=== PATIENT | female | born 1955 | race Caucasian/White ===

== ENCOUNTER 2018-01-17 17:41 | Inpatient (IN) ==
[2018-01-17] MEDS ORDERED: Aluminum/Magnesium/Simethacone Susp 30 ML UDC PO PRN (22:39)
[2018-01-17] MEDS ORDERED: LORazepam 1 MG Tablet PO PRN (22:39)
[2018-01-17] MEDS ORDERED: Acetaminophen 325 MG Tablet PO PRN (22:39)
[2018-01-18 08:05] LABS: Baso # (Auto) 0.1 th/mm3 (0.0-0.2); Baso % (Auto) 0.9 % (0.0-2.0); Eos # (Auto) 0.2 th/mm3 (0.0-0.4); Eos % (Auto) 1.9 % (0.0-4.0); Hematocrit 27.4 % (35.0-46.0); Hemoglobin 8.9 gm/dL (11.6-15.3); Lymph # (Auto) 1.5 th/mm3 (1.0-4.8); Lymph % (Auto) 16.3 % (9.0-44.0); Mean Corpuscular HGB Conc 32.5 % (32.0-36.0); Mean Corpuscular Hemoglobin 25.2 pg (27.0-34.0); Mean Corpuscular Volume 77.5 fL (80.0-100.0); Mean Platelet Volume 8.7 fL (7.0-11.0); Mono # (Auto) 0.5 th/mm3 (0.0-0.9); Mono % (Auto) 5.3 % (0.0-8.0); Neut # (Auto) 7.1 th/mm3 (1.8-7.7); Neut % (Auto) 75.6 % (16.0-70.0); Platelet Count 202 th/mm3 (150-450); Red Blood Count 3.54 mil/mm3 (4.00-5.30); Red Cell Distribution Width 15.6 % (11.6-17.2); White Blood Count 9.4 th/mm3 (4.0-11.0)
[2018-01-18 08:24] LABS: Anion Gap 10 meq/L (5-15); Aspartate Aminotransferase 45 U/L (15-37); Blood Urea Nitrogen 19 mg/dL (7-18); Calcium 8.1 mg/dL (8.5-10.1); Carbon Dioxide 22.8 meq/L (21.0-32.0); Chloride 106 meq/L (98-107); Glomerular Filtration Rate 59 mL/min (>89); Glucose,Random 287 mg/dL (74-106); Potassium 3.8 meq/L (3.5-5.1); Sodium 139 meq/L (136-145)
[2018-01-18 08:26] LABS: Alanine Aminotransferase 30 U/L (10-53); Cholesterol 155 mg/dL (120-200); Triglycerides 131 mg/dL (42-150)
[2018-01-18 08:35] LABS: Alkaline Phosphatase 62 U/L (45-117); Chol/HDL Ratio 3.55 Ratio; HDL Cholesterol 43.6 mg/dL (40.0-60.0); LDL Cholesterol,Calculated 85 mg/dL (0-99); Total Protein 6.6 g/dL (6.4-8.2)
[2018-01-18] MEDS ORDERED: Sertraline 50 MG Tablet PO ONE (10:31)
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
[2018-01-18] MEDS ORDERED: Dextrose 50% in Water 50 ML Vial IV.PUSH PRN (15:49)
--- NOTE | 2018-01-18 16:08 | P.CONIM ---
History of Present Illness Service: [facility] Consult date: 01/18/18 Requesting Physician: Grzegorz Monzon Reason for Consult: Assist with medical management Primary Care Provider: UNKNOWN Chief Complaint: Sweaty, dizziness, dry mouth History of Present Illness: Patient is a 62-year-old female with past medical history of hypertension, diabetes who initially came to [facility] for suicide attempt. Per review of records patient took 20 Tylenol PM and a bottle of Unisom with the intent of killing herself. She is now admitted to psychiatry unit for further evaluation. Consulted for assistance with medical management. Review of records from hospitalization in [facility], patient was treated with acetylcysteine, famotidine, discharged with Keflex secondary to bacterial infection. She is found to have acute kidney injury, and was treated with IV fluids. Her diabetic medications were held and was placed on insulin sliding scale. Patient was not started on insulin on transfer. Patient seen and examined today. Lying in bed. Reports that she was dizzy and unsteady on her feet. Complains of dry mouth. Complains of being sweaty. States that she was really concerned and worried that they have not been giving her insulin or any oral hypoglycemics for her diabetes because it might do harm on her. Patient denies suicidal ideation. Noted having cuts on her wrists. Denies pain and discomfort. Denies SOB/ dyspnea. Denies chest pain, palpitations. Denies fevers, chills, n/v/d. Denies dysuria. Review of Systems All other systems reviewed negative except as stated in HPI [facility] - History History Provided By: Patient, Medical Record - Medical History Medical History: Medical History (Last Updated 01/18/18 @ 17:28 by DAMIAN Blanco) DM type 2 (diabetes mellitus, type 2) HTN (hypertension) History of hysterectomy - Surgical History Surgical History: Surgical History (Last Updated 01/18/18 @ 17:28 by DAMIAN Blanco) Status post laser ablation of incompetent vein - Family History Family History: Family History (Last Updated 01/18/18 @ 17:28 by DAMIAN Blanco) Other Parents - Social History I have reviewed the patient's Social History: Yes - Tobacco History Second Hand Smoke Exposure: No Tobacco Use In Past 30 Days: No Smoking Status: Never smoker - Alcohol History How Often Do You Have a Drink Containing Alcohol: Never - Substance Use History Substance History: No History of Abuse - Substance Use Type Other Comment: Patient denies any past/present substance abuse. - Travel History Recent Travel in the [place] Within the Last 8 Weeks: No Recent Travel Out of the Country Within the Last 8 Weeks: No - Immunization History Tetanus Immunization: <5 Years Tetanus Immunization Year if Known: 2017 Hx Influenza Vaccine This Season: Yes Medications and Allergies Active Medications: Active Medications Acetaminophen (Tylenol) 650 mg PO Q4H PRN PRN Reason: Pain 1-5 or Temp >101F Al Hydrox/Mg Hydrox/Simethicone (Mag-Al Plus Susp Liq) 30 ml PO Q6H PRN PRN Reason: DYSPEPSIA Al Hydroxide/Mg Hydroxide (Milk Of Magnesia Liq) 30 ml PO Q12H PRN PRN Reason: Mild Constipation Albuterol (Duoneb Neb (Prn)) 1 ampul NEB Q4HR NEB PRN PRN Reason: SOB/ Wheezing Cephalexin Monohydrate (Keflex) 500 mg PO Q12HR [facility] Stop: 01/25/18 20:59 Dextrose (D50w Vial) 50 ml IV.PUSH UNSCH PRN PRN Reason: PER HYPOGLYCEMIA PROTOCOL Diphenhydramine HCl (Benadryl) 50 mg PO HS PRN PRN Reason: INSOMNIA Diphenhydramine HCl (Benadryl Inj) 50 mg IM HS PRN PRN Reason: INSOMNIA Glipizide (Glucotrol) 5 mg PO BID@0800,1700 [facility] Glucagon (Glucagon Inj) 1 mg OTHER PRN PRN PRN Reason: for Hypoglycemia Protocol Insulin Aspart (Novolog Insulin Correctional Sugar Inj) 0 unit SQ ACHS [facility]; Protocol Lisinopril (Prinivil) 10 mg PO DAILY [facility] Lorazepam (Ativan Inj) 1 mg IM Q6H PRN PRN Reason: MODERATE TO SEVERE ANXIETY Lorazepam (Ativan) 1 mg PO Q6H PRN PRN Reason: MODERATE TO SEVERE ANXIETY Metformin HCl (Glucophage) 1,000 mg PO BIDPC [facility] Miscellaneous (Pill Splitter) 1 each OTHER UNSCH [facility] Last Admin: 01/18/18 11:11 Dose: 1 each Nicotine (Habitrol 21 Mg Patch.24 Hr) 1 patch T-DERMAL DAILY [facility] Last Admin: 01/18/18 08:35 Dose: Not Given Patch Removal (Remove Old Patch) 1 each T-DERMAL HS [facility] Sertraline HCl (Zoloft) 50 mg PO DAILY [facility] Allergies Allergy/AdvReac Type Severity Reaction Status Date / Time erythromycin base Allergy Severe "swelled Verified 01/17/18 22:13 up" Exam Vital signs: Vital Signs 01/17/18 22:08 01/18/18 05:59 Temperature 98.3 F 98.3 F Pulse Rate 87 83 Respiratory Rate 18 16 Blood Pressure 155/71 H 127/85 Pulse Oximetry 100 95 Intake & Output 01/17/18 01/18/18 01/18/18 18:59 06:59 18:59 Weight 164.1 kg Other: Weight On Admission 164.1 kg Narrative: GENERAL: This is a morbidly obese female patient, in no apparent distress. SKIN: Warm and dry. Pale. Bilateral lower extremity discoloration. HEENT: Normocephalic. Pupils equal round and reactive. Nose without bleeding. Airway patent. NECK: Trachea midline. CARDIOVASCULAR: Regular rate and rhythm without murmurs, gallops, or rubs. RESPIRATORY: Clear to auscultation. Breath sounds equal bilaterally. No wheezes , rales, or rhonchi. GASTROINTESTINAL: Abdomen soft, non-tender, nondistended. Bowel Sounds normoactive x4. MUSCULOSKELETAL: Extremities without clubbing, cyanosis, or edema. NEUROLOGICAL: Awake and alert. Oriented to time, place, person. No focal neuro deficit. Moves all extremities. Normal speech. Results - Labs CBC & Chem 7: 01/18/18 07:39 01/18/18 07:39 Labs: Laboratory Results - last 24 hr 01/18/18 01/18/18 01/18/18 07:39 07:39 07:39 WBC 9.4 RBC 3.54 L Hgb 8.9 L Hct 27.4 L MCV 77.5 L MCH 25.2 L MCHC 32.5 RDW 15.6 Plt Count 202 MPV 8.7 Neut % (Auto) 75.6 H Lymph % (Auto) 16.3 [place] % (Auto) 5.3 Eos % (Auto) 1.9 Baso % (Auto) 0.9 Neut # (Auto) 7.1 Lymph # (Auto) 1.5 [place] # (Auto) 0.5 Eos # (Auto) 0.2 Baso # (Auto) 0.1 WBC Differential . Differential Comment Auto diff final Sodium 139 Potassium 3.8 Chloride 106 Carbon Dioxide 22.8 Anion Gap 10 BUN 19 H Creatinine 0.97 Estimated GFR 59 L Random Glucose 287 H Calcium 8.1 L Total Bilirubin 0.4 AST 45 H ALT 30 Alkaline Phosphatase 62 Total Protein 6.6 Albumin 3.0 L Triglycerides 131 Cholesterol 155 LDL Cholesterol, Calc 85 HDL Cholesterol 43.6 Cholesterol/HDL Ratio 3.55 TSH 4.150 H Free T4 1.26 Assessment and Plan - Plan Patient is a 62-year-old female with past medical history of hypertension, diabetes who initially came to [facility] for suicide attempt. Per review of records patient took 20 Tylenol PM and a bottle of Unisom with the intent of killing herself. She is now admitted to psychiatry unit for further evaluation. Consulted for assistance with medical management. Suicidal ideation Depression -Managed by psychiatry team DM 2, uncontrolled -Acute kidney injury has resolved, will restart home medication metformin 1000 mg twice daily, glipizide 5 mg twice daily -As per patient she is not taking any Januvia because of the cost of the medication. -Check hemoglobin A1c. Continue insulin sliding scale. -Monitor for hypoglycemia. -Patient possibly have dry mouth, dizziness, sweating and unsteady gait because her insulin and other home medications were not restarted. Patient's blood glucose is greater than 200 this a.m. HTN -Restart lisinopril 10 mg daily -Monitor BP trend Bacterial infection, from previous hospitalization -Continue Keflex 500 mg as ordered twice daily DVT prop, early ambulation Code Status: Full Code Discussed Condition With: Discussed condition patient, nursing Discharge Planning: DC disposition by primary team
[2018-01-18] MEDS: Lisinopril 10 MG Tablet PO SCH (16:51)
[2018-01-18] MEDS: glipiZIDE 5 MG Tablet PO SCH (16:51)
[2018-01-18] MEDS: Insulin NovoLOG Aspart Correctional Sugar Inj SQ SCH ×2 (16:52→20:51)
[2018-01-18 17:47] LABS: % Iron Saturation 11.6 % (20-50)
[2018-01-18 21:33] LABS: Hemoglobin A1c 11.5 % (4.3-6.0)
[2018-01-19] MEDS: Lisinopril 10 MG Tablet PO SCH (08:46)
[2018-01-19] MEDS: Sertraline 50 MG Tablet PO SCH (08:46)
[2018-01-19] MEDS: glipiZIDE 5 MG Tablet PO SCH ×2 (08:46→17:07)
[2018-01-19] MEDS: Insulin NovoLOG Aspart Correctional Sugar Inj SQ SCH ×4 (08:46→20:24)
--- NOTE | 2018-01-19 12:10 | P.PNPSY ---
<Paula Brush - Last Filed: 01/19/18 11:58> Subjective Remarks: Patient was seen, chart reviewed. Patient was found in her room sitting up in bed with her eyes closed during most of the interview. She reports poor sleep since her roommate left the light on most of the night. She states that she is doing better but is stressed out about her blood sugars which have been ranging from 200-300. She is also concerned that she is not drinking enough water. Patient reports appetite is fair and that she still needs her walker to get around. Patient smiled at inappropriate times during the interview and only opened her eyes at the end. Her sister visited yesterday and patient is "cautiously hopeful" about being able to stay with her sister when she is discharged. Review of Systems All other systems reviewed negative except as stated in HPI Constitutional: Reports daytime sleepiness Psychiatric: Reports hopelessness Mental Status Examination Appearance: Appropriate Consciousness: Lethargic Orientation: x4 Speech: Unremarkable, Slow Language: Adequate Fund of Knowledge: Inadequate Attention and Concentration: Adequate Memory: Unremarkable Mood: Good Affect: Appropriate Thought Process & Associations: Intact, Goal directed, Linear Thought Content: Appropriate Hallucination Type: None Delusion Type: None Suicidal Ideation: Yes (denies at this time but is unrelieable to contract for safety) Suicidal Plan: No Suicidal Intention: No Homicidal Ideation: No Homicidal Plan: No Homicidal Intention: No Insight: Fair Judgment: Impulsive Assessment and Plan - Assessment (1) Major depressive disorder Code(s): F32.9 - Major depressive disorder, single episode, unspecified Status : Acute - Plan Plan: Estimated LOS: [] days Patient is a 62-year-old woman with no formal past psychiatric history , who was brought in under [facility] act. As a transfer from a local hospital due to suicide attempt via overdose as well as having behavior in a suicide attempt. Patient at this time requires inpatient psychiatric stabilization for safety. Patient has capacity to consent for treatment and agrees to voluntary admission at this time. We will start patient on sertraline 25 mg p.o. x 1, 50 mg p.o. daily thereafter for depression. We will continue to monitor mood and behavior. Hospitalist input appreciated. Social work intervention for psychosocial assessment. Collateral information pending. Discharge planning in progress. Justification for Continued Inpatient Stay: Patient needs to be stabilized. Discharge Planning: Patient is having discussions with her sister about staying with her when she leaves as she is unable to afford her rent due on January 20. <NicolásRodrigueGrzegorz Stevo - Last Filed: 01/19/18 16:37> Subjective Remarks: Patient seen for follow up; chart reviewed. Discussion with nursing staff reported that patient reported that shortness of breath is improving and is ambulatory with walker still, denying suicide ideations today. Patient was found lying hospital bed noted B, cooperative. Patient states she was able to ambulate to the room for breakfast stating that her breathing is improved, states that she is moving better now. Patient reports her mood is being "okay" feeling tired but had disturbed sleep due to her roommate last evening. Patient continues report feeling depressed but denying any suicide ideations today although noted to have some vagueness to her answer. Patient states of his sister visited and unclear whether she is able to move in with her for support upon discharge. She states that she is trying to go to some groups denying any adverse drug reactions from treatment thus far. Review of Systems All other systems reviewed negative except as stated in HPI Mental Status Examination Appearance: Appropriate Consciousness: Alert, Somnolent (Slightly) Orientation: x4 Motor Activity: Other (Using a walker to ambulate) Speech: Unremarkable, Slow Language: Adequate Fund of Knowledge: Inadequate Attention and Concentration: Adequate Memory: Unremarkable Mood: Other ("ok") Affect: Sad Thought Process & Associations: Intact, Goal directed, Linear Thought Content: Appropriate Hallucination Type: None Delusion Type: None Suicidal Ideation: Yes Suicidal Plan: No Suicidal Intention: No Homicidal Ideation: No Homicidal Plan: No Homicidal Intention: No Insight: Fair Judgment: Impulsive Assessment and Plan - Assessment (1) Major depressive disorder Code(s): F32.9 - Major depressive disorder, single episode, unspecified Status : Acute - Plan Plan: Estimated LOS: [] days Patient this time continues with depressed mood, vague suicidal ideation still and unreliable to contract for safety. We will continue current treatment. We will continue to monitor mood and behavior. Sertraline is increased to 50 mg p.o. daily. Discharge planning in progress. <Grzegorz Monzon G - Last Filed: 01/19/18 16:37> (1) Major depressive disorder Qualifiers: Major depression recurrence: single episode Active/Remission status: currently active Major depression episode severity: severe Psychotic features : without psychotic features Qualified Code(s): F32.2 - Major depressive disorder, single episode, severe without psychotic features
--- NOTE | 2018-01-19 14:29 | P.PNIM ---
Subjective Interval history: Follow-up visit uncontrolled diabetes type 2, morbid obesity, generalized weakness, urinary tract infection. Patient seen and examined today. States that she has generalized weakness. States occasionally gets dizzy when she gets up. Discussed with patient results of hemoglobin A1c which is 11.5. States that she has unit educator visit today. Discussed starting insulin regimen. Verbalized understanding. Denies pain and discomfort. Denies SOB/ dyspnea. Denies chest pain, palpitations. Denies fevers, chills, n/v/d. Denies dysuria. Physical Exam Vital signs: Vital Signs 01/18/18 17:26 01/18/18 20:33 01/19/18 05:13 Temperature 98.6 F 98.0 F Pulse Rate 79 79 77 Respiratory Rate 16 18 Blood Pressure 129/77 139/69 Pulse Oximetry 92 L 87 L Intake & Output 01/18/18 01/19/18 01/19/18 18:59 06:59 18:59 Intake Total 240 / 240 Balance 240 / 240 Intake: Oral 240 / 240 Narrative: GENERAL: This is a morbidly obese female patient, in no apparent distress. SKIN: Warm and dry. Pale. Bilateral lower extremity discoloration. Bilateral wrists and Antecubital area lacerations. HEENT: Normocephalic. Pupils equal round and reactive. Nose without bleeding. Airway patent. NECK: Trachea midline. CARDIOVASCULAR: Regular rate and rhythm without murmurs, gallops, or rubs. RESPIRATORY: Clear to auscultation. Breath sounds equal bilaterally. No wheezes , rales, or rhonchi. GASTROINTESTINAL: Abdomen soft, non-tender, obese. Bowel Sounds normoactive x4. MUSCULOSKELETAL: Extremities without clubbing, cyanosis, or edema. NEUROLOGICAL: Awake and alert. No focal neuro deficit. Moves all extremities. Normal speech. Results - Labs CBC & Chem 7: 01/18/18 07:39 01/18/18 07:39 Laboratory Results - last 24 hr 01/18/18 01/18/18 01/18/18 07:39 07:39 16:11 POC Glucose 359 H Hemoglobin A1c 11.5 H Iron 34 L TIBC 294 % Saturation 11.6 L Ferritin 140 01/18/18 01/19/18 01/19/18 20:01 06:13 11:23 POC Glucose 283 H 250 H 291 H Hemoglobin A1c Iron TIBC % Saturation Ferritin Assessment and Plan - Plan Patient is a 62-year-old female with past medical history of hypertension, diabetes who initially came to [facility] for suicide attempt. Per review of records patient took 20 Tylenol PM and a bottle of Unisom with the intent of killing herself. She is now admitted to psychiatry unit for further evaluation. Consulted for assistance with medical management. Suicidal ideation Depression -Managed by psychiatry team DM 2, uncontrolled -Acute kidney injury has resolved, will restart home medication metformin 1000 mg twice daily, glipizide 5 mg twice daily -As per patient she is not taking any Januvia because of the cost of the medication. -Continue insulin sliding scale. inclusion paraeducator. -Hemoglobin A1c 11.5. Discussed with patient extensively she will start insulin regimen. -We will start 70/30 10 units twice daily, adjust as necessary. Ideally patient should be on a basal insulin however due to the cost of Levemir/Lantus, will opt for the 7030 regimen. Extensively discussed with patient to take the insulin on her 2 biggest meals of the day. She verbalized understanding. Thankful that she will start with something affordable. -Nursing advice to have the patient start to inject herself for coverage so she could practice with insulin injection. -Monitor for hypoglycemia. HTN -Restart lisinopril 10 mg daily -Monitor BP trend Urinary tract infection Bacterial infection, from previous hospitalization -Continue Keflex 500 mg as ordered twice daily x 7days DVT prop, early ambulation CODE STATUS: Full code Discussed with patient, nursing Discharge Planning: DC disposition by primary team
[2018-01-20] MEDS: Lisinopril 10 MG Tablet PO SCH (08:20)
[2018-01-20] MEDS: Sertraline 50 MG Tablet PO SCH (08:20)
[2018-01-20] MEDS: glipiZIDE 5 MG Tablet PO SCH ×2 (08:22→17:44)
[2018-01-20] MEDS: Insulin NovoLOG Aspart Correctional Sugar Inj SQ SCH ×4 (08:22→20:59)
--- NOTE | 2018-01-20 16:15 | P.PN ---
Subjective Interval history: Follow-up visit uncontrolled diabetes type 2, morbid obesity, generalized weakness, urinary tract infection. Patient seen and examined today. Awakes to voice, c/o feeling fatigued, doesn't have energy to walk around. Mildly sob with activity. No cp. Dizziness occasionally. No fever. BGM 240s, lowest 172. Noted pale, denies blood in stool, no heartburn. No problems with appetite. Physical Exam Vital signs: Vital Signs 01/19/18 17:17 01/20/18 04:53 Temperature 98.7 F 97.9 F Pulse Rate 78 71 Respiratory Rate 18 16 Blood Pressure 148/77 H 133/70 Pulse Oximetry 93 L 91 L Narrative: GENERAL: This is a morbidly obese female patient, in no apparent distress. SKIN: Warm and dry. Pale. Bilateral lower extremity discoloration. Bilateral wrists and Antecubital area lacerations. HEENT: Normocephalic. Pupils equal round and reactive. Nose without bleeding. Airway patent. NECK: Trachea midline. CARDIOVASCULAR: Regular rate and rhythm without murmurs, gallops, or rubs. RESPIRATORY: Clear to auscultation. Breath sounds equal bilaterally. No wheezes , rales, or rhonchi. GASTROINTESTINAL: Abdomen soft, non-tender, obese. Bowel Sounds normoactive x4. MUSCULOSKELETAL: Extremities without clubbing, cyanosis, or edema. NEUROLOGICAL: Awake and alert. No focal neuro deficit. Moves all extremities. Normal speech. Results - Labs CBC & Chem 7: 01/18/18 07:39 01/18/18 07:39 Laboratory Results - last 24 hr 01/19/18 01/19/18 01/20/18 16:29 19:45 05:53 POC Glucose 234 H 252 H 172 H 01/20/18 11:06 POC Glucose 240 H Assessment and Plan - Plan Patient is a 62-year-old female with past medical history of hypertension, diabetes who initially came to [facility] for suicide attempt. Per review of records patient took 20 Tylenol PM and a bottle of Unisom with the intent of killing herself. She is now admitted to psychiatry unit for further evaluation. Consulted for assistance with medical management. Suicidal ideation Depression -Managed by psychiatry team DM 2, uncontrolled -Acute kidney injury has resolved, restarted on home medication metformin 1000 mg twice daily, glipizide 5 mg twice daily -As per patient she is not taking any Januvia because of the cost of the medication. -Continue insulin sliding scale. unit educator. -Hemoglobin A1c 11.5. Discussed with patient extensively she will start insulin regimen. -Started on 70/30 10 units twice daily, adjust as necessary. Ideally patient should be on a basal insulin however due to the cost of Levemir/Lantus, will opt for the 70/30 regimen. Extensively discussed with patient to take the insulin on her 2 biggest meals of the day. She verbalized understanding. Thankful that she will start with something affordable. -Inc. 70/30 to 12 units SQ BID, d/w RN, pt. needs to start practicing self administration of insulin HTN -continue lisinopril 10 mg daily -Monitor BP trend Urinary tract infection Bacterial infection, from previous hospitalization -Continue Keflex 500 mg as ordered twice daily x 7days Anemia, microcytic initial HH 8.9/27.4 C/O feeling fatigued, low energy, some sob with activity Low iron stores noted -Start PO Iron -will repeat CBC in am -check B12 and stool for OB DVT prop, early ambulation/TEDS Code Status: Full code Discussed Condition With: RN, pt. Discharge Planning: per psych team
--- NOTE | 2018-01-20 18:01 | P.PNPSY ---
Subjective Remarks: Reviewed electronic medical records and discussed case with staff. Follow-up was conducted in the day room with CHAI Sanchez present. Her nurse reports that she has been very optimistic today and compliant with her treatment. Patient reports that she feels she is doing better now than she was earlier. She claims that she had some difficulty sleeping last night and thinks the Benadryl made her feel little groggy this morning. She states that her mood is "okay right now". She comes across as a little somatic throughout the conversation complaining of nausea this morning she denies any current complaints. Mental Status Examination Appearance: Appropriate Consciousness: Alert, Somnolent (Slightly) Orientation: x4 Motor Activity: Other (Using a walker to ambulate) Speech: Unremarkable, Slow Language: Adequate Fund of Knowledge: Inadequate Attention and Concentration: Adequate Memory: Unremarkable Mood: Other ("ok") Affect: Sad Thought Process & Associations: Intact, Goal directed, Linear Thought Content: Appropriate Hallucination Type: None Delusion Type: None Suicidal Ideation: Yes Suicidal Plan: No Suicidal Intention: No Homicidal Ideation: No Homicidal Plan: No Homicidal Intention: No Insight: Fair Judgment: Impulsive Assessment and Plan - Assessment (1) Major depressive disorder Code(s): F32.9 - Major depressive disorder, single episode, unspecified Status : Acute - Plan Plan: Patient will be reevaluated by the attending psychiatrist. Continue with current treatment plan. Justification for Continued Inpatient Stay: Moving this patient to a less restrictive environment would likely result in decompensation. (1) Major depressive disorder Qualifiers: Major depression recurrence: single episode Active/Remission status: currently active Major depression episode severity: severe Psychotic features : without psychotic features Qualified Code(s): F32.2 - Major depressive disorder, single episode, severe without psychotic features
[2018-01-21] MEDS: Lisinopril 10 MG Tablet PO SCH (08:34)
[2018-01-21] MEDS: Sertraline 50 MG Tablet PO SCH (08:34)
[2018-01-21] MEDS: glipiZIDE 5 MG Tablet PO SCH ×2 (08:35→17:12)
[2018-01-21] MEDS: Insulin NovoLOG Aspart Correctional Sugar Inj SQ SCH ×4 (08:38→20:04)
[2018-01-21 10:25] LABS: Hematocrit 27.8 % (35.0-46.0); Hemoglobin 8.9 gm/dL (11.6-15.3); Mean Corpuscular HGB Conc 32.1 % (32.0-36.0); Mean Corpuscular Hemoglobin 25.1 pg (27.0-34.0); Mean Corpuscular Volume 78.2 fL (80.0-100.0); Mean Platelet Volume 8.9 fL (7.0-11.0); Platelet Count 206 th/mm3 (150-450); Red Blood Count 3.55 mil/mm3 (4.00-5.30); Red Cell Distribution Width 16.1 % (11.6-17.2); White Blood Count 9.3 th/mm3 (4.0-11.0)
--- NOTE | 2018-01-21 13:53 | P.PNPSY ---
Subjective Remarks: Reviewed electronic medical record and discussed with nursing staff. Rounded with CHAI Sanchez. Patient is in her room. She uses a walker to ambulate. She is morbidly obese. She is depressed with a flat and blunted affect. She is sleeping intermittently and is sensitive to sound. Appetite is good. Denies SI /HI. Review of Systems All other systems reviewed negative except as stated in HPI Mental Status Examination Appearance: Appropriate Consciousness: Alert, Somnolent (Slightly) Orientation: x4 Motor Activity: Other (Using a walker to ambulate) Speech: Unremarkable, Slow Language: Adequate Fund of Knowledge: Inadequate Attention and Concentration: Adequate Memory: Unremarkable Mood: Other ("ok") Affect: Sad Thought Process & Associations: Intact, Goal directed, Linear Thought Content: Appropriate Hallucination Type: None Delusion Type: None Suicidal Ideation: No Suicidal Plan: No Suicidal Intention: No Homicidal Ideation: No Homicidal Plan: No Homicidal Intention: No Insight: Fair Judgment: Impulsive Assessment and Plan - Assessment (1) Major depressive disorder Code(s): F32.9 - Major depressive disorder, single episode, unspecified Status : Acute - Plan Plan: Patient will be reevaluated by the attending psychiatrist. Continue with current treatment plan. Justification for Continued Inpatient Stay: Moving patient to a less restrictive environment may result in her decompensation. (1) Major depressive disorder Qualifiers: Major depression recurrence: single episode Active/Remission status: currently active Major depression episode severity: severe Psychotic features : without psychotic features Qualified Code(s): F32.2 - Major depressive disorder, single episode, severe without psychotic features
--- NOTE | 2018-01-21 16:10 | P.PN ---
Subjective Interval history: Follow-up on patient with uncontrolled diabetes, morbid obesity, UTI. Patient seen and examined. Patient complains of feeling tired. She states that she has had ongoing shortness of breath with minimal exertion. She denies any complaints of associated chest pain. Patient states that she was told in the past that she has Takotsubo cardiomyopathy. Patient states she had cardiac catheterization about 4 years ago and was told no intervention was needed. He does not follow-up with line walker. She complains of bilateral extremity edema and wears compression stockings every day for improvement. She reports mild cough without any sputum production. She denies any fever or chills. She denies any nausea vomiting or abdominal pain. She does not have a history of tobacco use but does report secondhand exposure. She denies any history of asthma. Physical Exam Vital signs: Vital Signs 01/20/18 23:39 01/21/18 05:50 Temperature 98.2 F 98.8 F Pulse Rate 75 76 Respiratory Rate 16 18 Blood Pressure 142/86 H 146/70 H Pulse Oximetry 96 93 L Narrative: GENERAL: This is a well-developed well-nourished morbidly obese female patient. Awake and alert. INAD. SKIN: Warm and dry. +multiple superficial lacerations on both wrists, as well as several lacerations with sutures in place. Proximal laceration on right wrist slightly erythematous, no drainage noted, no surrounding edema, fluctuance or streaking. Patient states her ID bands have been irritating the wound. HEENT: Atraumatic. Normocephalic. Pupils equal and round. No scleral icterus. No injection or drainage. No nasal bleeding or discharge. Mucous membranes pink and moist. NECK: Trachea midline. CARDIOVASCULAR: Regular rate and rhythm. No murmur appreciated. RESPIRATORY: No accessory muscle use. Clear to auscultation. Breath sounds equal bilaterally. GASTROINTESTINAL: Abdomen soft, non-tender, nondistended. +BS x 4. MUSCULOSKELETAL: Extremities without clubbing or cyanosis. +Bilateral lower extremity pitting edema. NEUROLOGICAL: Awake and alert. No obvious cranial nerve deficits. Able to move all extremities spontaneously. Normal speech. PSYCHIATRIC: Calm and cooperative. Results - Labs CBC & Chem 7: 01/21/18 09:35 01/18/18 07:39 Laboratory Results - last 24 hr 01/20/18 01/20/18 01/21/18 16:31 19:49 06:26 WBC RBC Hgb Hct MCV MCH MCHC RDW Plt Count MPV POC Glucose 196 H 201 H 147 H Vitamin B12 01/21/18 01/21/18 01/21/18 09:35 09:35 11:35 WBC 9.3 RBC 3.55 L Hgb 8.9 L Hct 27.8 L MCV 78.2 L MCH 25.1 L MCHC 32.1 RDW 16.1 Plt Count 206 MPV 8.9 POC Glucose 178 H Vitamin B12 1155 H Assessment and Plan - Plan 62-year-old female with past medical history of hypertension, diabetes who initially came to [facility] for suicide attempt. Per review of records patient took 20 Tylenol PM and a bottle of Unisom with the intent of killing herself. She is now admitted to psychiatry unit for further evaluation. Consulted for assistance with medical management. Suicidal ideation Depression -Managed by psychiatry team Bilateral wrist lacerations -sutures in place, to be removed on Monday -monitor DM 2, uncontrolled A1c 11.5 continue on home medication metformin 1000 mg twice daily, glipizide 5 mg twice daily -As per patient she is not taking Januvia because of the cost of the medication. -Continue accucheks and coverage with insulin sliding scale. -Started on 70/30 10 units twice daily, adjust as necessary. Ideally patient should be on a basal insulin however due to the cost of Levemir/Lantus, will opt for the 70/30 regimen. Extensively discussed with patient to take the insulin on her 2 biggest meals of the day. She verbalized understanding. Thankful that she will start with something affordable. -Blood sugars improved but still running high 100s to low 200s. Increase 70/ 30 to 14 units SQ BID. -STEPHAN RN who has been instructing patient on administration of her insulin History of Takotsubo cardiomyopathy c/o fatigue, SOB with minimal exertion, LE edema on exam s/p cardiac catheterization with patent arteries per patient report -obtain echocardiogram -obtain CXR HTN -continue lisinopril 10 mg daily -Monitor BP trend Urinary tract infection Bacterial infection, from previous hospitalization -Continue Keflex 500 mg as ordered twice daily x 7days Anemia, microcytic C/O feeling fatigued, low energy, some sob with activity Iron stores low B12 1155 -started on po iron supplementation, continue -Hgb low but stable -pending stool for occult blood Morbid obesity BMI 60.2 -Discussed with patient importance of lifestyle modification, dietary changes , regular home exercise program DVT prop, early ambulation/TEDS Discussed Condition With: Patient, nursing staff
--- NOTE | 2018-01-21 17:28 | XR ---
EXAM DATE: 01/21/2018 5:25 PM EST AGE/SEX: 62 years / Female INDICATIONS: Dyspnea CLINICAL DATA: This is the patient's initial encounter. Patient reports that signs and symptoms have been present for 1 day and indicates a pain score of 0/10. MEDICAL/SURGICAL HISTORY: None. None. COMPARISON: No prior exams available for comparison. FINDINGS: A single AP view of the chest demonstrates the lungs to be symmetrically aerated without evidence of mass, infiltrate or effusion. The cardiomediastinal contours are unremarkable. Osseous structures a re intact. CONCLUSION: 1. No acute cardiopulmonary disease. Electronically signed by: Jerry Blancas MD 01/21/2018 5:25 PM EST
[2018-01-22] MEDS: Insulin NovoLOG Aspart Correctional Sugar Inj SQ SCH ×4 (07:19→21:08)
[2018-01-22] MEDS: Lisinopril 10 MG Tablet PO SCH (08:13)
[2018-01-22] MEDS: glipiZIDE 5 MG Tablet PO SCH ×2 (08:13→18:02)
[2018-01-22] MEDS: Sertraline 50 MG Tablet PO SCH (08:13)
--- NOTE | 2018-01-22 11:45 | ECHRPT ---
Indication: CARDIOMYOPATHY CONCLUSIONS Normal left ventricular size. Wall thickness is normal. The left ventricular systolic function is normal with an estimated ejection fraction in the range of 60-65%. No definite wall motion abnormalities. The right ventricle was not well visualized. Upper normal right ventricular size with probably normal systolic function. There is trace tricuspid valve regurgitation. BP: / HR: Rhythm: Sinus MEASUREMENTS (Male / Female) Normal Values Technical Quality:Fair 2D ECHO LV Diastolic Diameter PLAX 5.5 cm 4.2 - 5.9 / 3.9 - 5.3 cm LV Systolic Diameter PLAX 4.2 cm IVS Diastolic Thickness 0.9 cm 0.6 - 1.0 / 0.6 - 0.9 cm LVPW Diastolic Thickness 0.8 cm 0.6 - 1.0 / 0.6 - 0.9 cm LV Relative Wall Thickness 0.3 RV Internal Dim ED PLAX 3.8 cm LVOT Diameter 1.8 cm Aortic Root Diameter 2.8 cm LA Systolic Diameter LX 3.7 cm 3.0 - 4.0 / 2.7 - 3.8 cm DOPPLER AV Peak Velocity 194.0 cm/s AV Peak Gradient 15.1 mmHg LVOT Peak Velocity 138.0 cm/s LVOT Peak Gradient 7.6 mmHg AV Area Cont Eq pk 1.8 cm MV Peak Velocity 123.0 cm/s MV Peak Gradient 6.1 mmHg MV Mean Velocity 70.9 cm/s MV Mean Gradient 2.0 mmHg Mitral E Point Velocity 83.9 cm/s Mitral A Point Velocity 106.0 cm/s Mitral E to A Ratio 0.8 LV E' Lateral Velocity 10.7 cm/s Mitral E to LV E' Lateral Ratio 7.8 LV E' Septal Velocity 6.9 cm/s Mitral E to LV E' Septal Ratio 12.1 TR Peak Velocity 342.0 cm/s TR Peak Gradient 46.8 mmHg Right Atrial Pressure 15.0 mmHg Pulmonary Artery Systolic Pressu 61.8 mmHg Right Ventricular Systolic Press 61.8 mmHg PV Peak Velocity 93.8 cm/s PV Peak Gradient 3.5 mmHg FINDINGS LEFT VENTRICLE Normal left ventricular size. Wall thickness is normal. The left ventricular systolic function is normal with an estimated ejection fraction in the range of 60-65%. No definite wall motion abnormalities. RIGHT VENTRICLE The right ventricle was not well visualized. Upper normal right ventricular size with probably normal systolic function. LEFT ATRIUM The left atrial size is normal. RIGHT ATRIUM The right atrial size is normal. ATRIAL SEPTUM Normal atrial septal thickness without atrial level shunting by limited color doppler interrogation. AORTA The aortic root and proximal ascending aorta are normal in size on limited imaging. MITRAL VALVE Structurally normal mitral valve. No mitral valve stenosis or regurgitation. AORTIC VALVE Trileaflet aortic valve. No aortic valve stenosis or regurgitation. TRICUSPID VALVE There is trace tricuspid valve regurgitation. PULMONARY VALVE No pulmonary valve regurgitation or stenosis. VESSELS The inferior vena cava is dilated. There is greater than 50% respiratory change in dimension of the inferior vena cava (normal). PERICARDIUM There is a possible small pericardial effusion present. The pericardial effusion is primarily located anteriorly. Oswald Brush MD (Electronically Signed) Final Date:22 January 2018 11:44
--- NOTE | 2018-01-22 13:58 | P.PNPSY ---
Subjective Remarks: Patient seen for follow-up, chart reviewed. Discussion with nursing staff reported that patient with no suicidal ideation, in good spirits. Patient found participating in groups, states that her weekend went "not too bad", stating physically doing better and less shortness of breath. Mentions that she had echocardiogram done today. Her mood has been "ok", states feeling less depressed with no suicidal ideation today. She mentions planning on going to live with her sister upon discharge. Review of Systems All other systems reviewed negative except as stated in HPI Mental Status Examination Appearance: Appropriate Consciousness: Alert Orientation: x4 Motor Activity: Other (Using a walker to ambulate) Speech: Unremarkable, Slow Language: Adequate Fund of Knowledge: Inadequate Attention and Concentration: Adequate Memory: Unremarkable Mood: Sad (lessening) Affect: Appropriate Thought Process & Associations: Intact, Goal directed, Linear Thought Content: Appropriate Hallucination Type: None Delusion Type: None Suicidal Ideation: No Suicidal Plan: No Suicidal Intention: No Homicidal Ideation: No Homicidal Plan: No Homicidal Intention: No Insight: Fair Judgment: Impulsive Assessment and Plan - Assessment (1) Major depressive disorder Code(s): F32.9 - Major depressive disorder, single episode, unspecified Status : Acute - Plan Plan: Patient noted to have improvement in mood, participate more in groups and feeling better physically. Patient had echocardiogram done, we will await medical clearance. Patient reported less depressed mood and denies suicide ideation today. We will plan for discharge tomorrow with outpatient follow-up. Continue current treatment. Continue to monitor mood and behavior. Discharge planning in progress. Justification for Continued Inpatient Stay: At risk of further decompensation at lower level care. (1) Major depressive disorder Qualifiers: Major depression recurrence: single episode Active/Remission status: currently active Major depression episode severity: severe Psychotic features : without psychotic features Qualified Code(s): F32.2 - Major depressive disorder, single episode, severe without psychotic features
--- NOTE | 2018-01-22 14:19 | P.TTN ---
- Patient Problems Problems: 1. Discharge planning 2. Medication compliance 3. Knowledge deficit 4. Lack of coping skills - Progress Toward Goals Provider Present: Dr. Gaye Monzon Provider Input: Dr. Monzon did not report medication changes for this patient. Psychiatric Counselors Present: Maylin Guerra [facility] Psychiatric Therapist Input: Counselor reported possible discharge to sister's home. Counselor reported that patient is doing better. Group Spec/RT/OT/MENDEZ Present: Megan Santamaria, GPS, Brandon Hidalgo OT Clinical Coordinator: Munira Jesus [facility] - Documentation Teaching Recipient: Patient
[2018-01-22 18:19] VITALS: RESP 16
[2018-01-23 05:50] VITALS: BP 105/61; PULSE 63; TEMP 98.4; O2SAT 96
[2018-01-23] MEDS: Insulin NovoLOG Aspart Correctional Sugar Inj SQ SCH ×2 (07:19→12:30)
[2018-01-23] MEDS: glipiZIDE 5 MG Tablet PO SCH (08:26)
[2018-01-23] MEDS: Sertraline 50 MG Tablet PO SCH (08:26)
[2018-01-23] MEDS: Lisinopril 10 MG Tablet PO SCH (08:26)
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
--- NOTE | 2018-01-23 12:01 | P.PN ---
Subjective Interval history: Follow-up on patient with uncontrolled diabetes, morbid obesity, UTI. Patient seen and examined. Discussed with patient results of echocardiogram. Patient states her shortness of breath has been slowly improving. Home oxygen walk test was ordered but has not been done. Patient denies any fever or chills. She denies any shortness of breath at rest. She states her shortness of breath with exertion is improving slowly. She denies any chest pain or palpitations. She denies any nausea vomiting or abdominal pain. Physical Exam Vital signs: Vital Signs 01/22/18 18:18 01/23/18 05:49 Temperature 97.6 F 98.4 F Pulse Rate 69 63 Respiratory Rate 16 16 Blood Pressure 119/58 L 105/61 Pulse Oximetry 94 L 96 Intake & Output 01/22/18 01/23/18 01/23/18 18:59 06:59 18:59 Other: Date of Last Bowel Movement 01/22/18 01/22/18 Narrative: GENERAL: This is a well-developed well-nourished morbidly obese female patient, INAD. Awake and alert. SKIN: Warm and dry. +multiple superficial lacerations on both wrists, as well as several lacerations with sutures in place. Proximal laceration on right wrist slightly erythematous, no drainage noted, no surrounding edema, fluctuance or streaking. Patient states her ID bands have been irritating the wound. HEENT: Atraumatic. Normocephalic. Pupils equal and round. No scleral icterus. No injection or drainage. No nasal bleeding or discharge. Mucous membranes pink and moist. NECK: Trachea midline. CARDIOVASCULAR: Regular rate and rhythm. No murmur appreciated. RESPIRATORY: No accessory muscle use. Clear to auscultation. Breath sounds equal bilaterally. GASTROINTESTINAL: Abdomen soft, non-tender, nondistended. +BS x 4. MUSCULOSKELETAL: Extremities without clubbing or cyanosis. +Bilateral lower extremity pitting edema. Patient is wearing MOIZ hose. NEUROLOGICAL: Awake and alert. No obvious cranial nerve deficits. Able to move all extremities spontaneously. Normal speech. PSYCHIATRIC: Calm and cooperative. Results - Labs CBC & Chem 7: 01/21/18 09:35 01/18/18 07:39 Laboratory Results - last 24 hr 01/22/18 01/22/18 01/22/18 16:10 17:59 20:40 POC Glucose 93 160 H 88 12/04/18 12/04/18 12/04/18 07:02 08:07 11:23 POC Glucose 89 120 H 109 Microbiology 01/22/18 09:57 Stool Stool Occult Blood (JADEN) - Final Hemoccult negative Assessment and Plan - Plan 62-year-old female with past medical history of hypertension, diabetes who initially came to [facility] for suicide attempt. Per review of records patient took 20 Tylenol PM and a bottle of Unisom with the intent of killing herself. She is now admitted to psychiatry unit for further evaluation. Consulted for assistance with medical management. Suicidal ideation Depression -Managed by psychiatry team Bilateral wrist lacerations -sutures in place, to be removed today. Nursing order placed. Patient advised on local wound care. -monitor DM 2, uncontrolled A1c 11.5 continue on home medication metformin 1000 mg twice daily, glipizide 5 mg twice daily -As per patient she is not taking Januvia because of the cost of the medication. -Continue accucheks and coverage with insulin sliding scale. -Started on 70/30 10 units twice daily, adjust as necessary. Ideally patient should be on a basal insulin however due to the cost of Levemir/Lantus, will opt for the 70/30 regimen. Extensively discussed with patient to take the insulin on her 2 biggest meals of the day. She verbalized understanding. Thankful that she will start with something affordable. -Blood sugars too tightly controlled. RN already gave oral agents. Will hold scheduled insulin at this time. Decrease 70/30 to 12 units SQ BID. -STEPHAN RN who has been instructing patient on administration of her insulin History of Takotsubo cardiomyopathy c/o fatigue, SOB with minimal exertion, LE edema on exam s/p cardiac catheterization with patent arteries per patient report -Patient states her exertional dyspnea is slowly improving. Echocardiogram results reviewed with patient, EF 60-65%, no wall motion abnormalities. CXR unremarkable, images reviewed by me. HTN -continue lisinopril 10 mg daily -Monitor BP trend Urinary tract infection Bacterial infection, from previous hospitalization -Continue Keflex 500 mg as ordered twice daily x 7days Anemia, microcytic C/O feeling fatigued, low energy, some sob with activity Iron stores low B12 1155 -started on po iron supplementation, continue -Hgb low but stable -Stool Hemoccult negative Morbid obesity BMI 60.2 -Discussed with patient importance of lifestyle modification, dietary changes , regular home exercise program DVT prop, early ambulation/TEDS Discussed Condition With: patient, nursing staff
== END 2018-01-23 12:35 | disposition home or self-care (01) ==
LOC: H260 20:50
PROVIDERS: ADMIT Student in an Organized Health Care Education/Training Program; ATTEND Student in an Organized Health Care Education/Training Program